=== PATIENT | female | born 1975 | race Caucasian/White ===

== ENCOUNTER 2016-07-07 12:06 | Emergency (ER) | payer OTHER ==
[2016-07-07 12:11] VITALS: BP 124/72; PULSE 74; TEMP 98.3; BMI 44.4
--- NOTE | 2016-07-07 13:09 | PDOC ---
History of Present Illness - General Chief Complaint: Head/Neck problem Stated Complaint: HEAD INJURY, NAUSEA Time Seen by Provider: 07/07/16 12:37 History Source: Patient Exam Limitations: No Limitations - History of Present Illness Initial Comments: 07/07/16 13:07 40-year-old female presents to the ED with complaints of left temporal pain since yesterday patient states was outside when the recycle bin fell and hit the side of her head. Patient states had no LOC and since then has developed a headache with nausea but denies any visual changes, dizziness, or vomiting. Patient on no blood thinners and denies any recent injury to the affected area. Timing/Duration: reports: 24 hours Severity: Yes: mild, moderate Associated Symptoms: reports: nausea/vomiting (nausea only) Past History - Past Medical History Allergies/Adverse Reactions: Allergies Allergy/AdvReac Type Severity Reaction Status Date / Time Sulfa (Sulfonamide Allergy Rash Verified 07/07/16 12:11 Antibiotics) Home Medications: Ambulatory Orders Pantoprazole Sodium 40 mg PO ASDIR 07/07/16 GI Disorders: Yes (BARRETTS ESOPHOGUS) - Surgical History Appendectomy: Yes - Psycho/Social/Smoking Cessation Hx Suicidal Ideation: No Smoking History: Never smoked Hx Alcohol Use: Yes (SOCIAL) Drug/Substance Use Hx: No Substance Use Type: None Patient Lives Alone: No Lives with/in: spouse/SO Review of Systems - Review of Systems Able to Perform ROS?: Yes Constitutional: No: Symptoms Reported HEENTM: No: Symptoms Reported Respiratory: Yes: Symptoms reported Cardiac (ROS): No: Symptoms Reported ABD/GI: Yes: Nausea. No: Vomiting : No: Symptoms Reported Musculoskeletal: No: Symptoms Reported, Neck Pain Integumentary: Yes: Bruising (left temporal), Erythema, Lumps Endocrine: No: Symptoms Reported Hematologic/Lymphatic: No: Symptoms Reported *Physical Exam - Vital Signs Last Vital Signs Temp Pulse Resp BP Pulse Ox 98.3 F 74 20 124/72 100 07/07/16 12:08 07/07/16 12:08 07/07/16 12:08 07/07/16 12:08 07/07/16 12:08 - Physical Exam General Appearance: Yes: Nourished, Appropriately Dressed. No: Apparent Distress HEENT: positive: EOMI, LILLIE. negative: Pale Conjunctivae Neck: positive: Supple. negative: Tender, Decreased range of motion Respiratory/Chest: positive: Lungs Clear, Normal Breath Sounds. negative: Respiratory Distress, Accessory Muscle Use Integumentary: positive: Ecchymosis (with mild edema over left forehead ) Neurologic: positive: Motor Strength 5/5 (ambulatory ) ED Treatment Course - RADIOLOGY Radiology Studies Ordered: Category Date Time Status HEAD CT WITHOUT CONTRAST [CT] Stat CT Scan 07/07/16 13:03 Ordered Medical Decision Making - Medical Decision Making 07/07/16 13:11 Pt status post an injury yesterday while placing items recyclable being struck by recycled bin. With noted hematoma along with mild edema to the lateral aspect of left eye. No neuro deficits but concerning for complaints of nausea and locality of injury. Patient ordered for head CT will check urine status . Offered Zofran but refused currently. 07/07/16 14:49 Laboratory Tests 07/07/16 13:00 Urine HCG, Qual Negative Head CT negative for acute pathology. Patient requesting something for discomfort. Patient ordered for Tylenol and will be discharged home with postconcussive syndrome instructions. *DC/Admit/Observation/Transfer Diagnosis at time of Disposition: Nausea Contusion of head Qualifiers: Encounter type: initial encounter Laterality: left - Discharge Dispostion Disposition: HOME Condition at time of disposition: Good - Referrals Referrals: Urbano Laws [Primary Care Provider] - - Patient Instructions Printed Discharge Instructions: DI for Postconcussion Syndrome Additional Instructions: All your head CT was negative for acute findings I do recommend you follow the instructions enclosed in your packet. Take Tylenol for discomfort Return to ED if your symptoms worsen despite above recommendations.
[2016-07-07] MEDS ORDERED: ACETAMINOPHEN 325 MG TABLET (FP) ONE (14:45)
[2016-07-07] MEDS ORDERED: ACETAMINOPHEN 500 MG TABLET (FP) PO ONE (14:50)
== END 2016-07-07 14:58 | disposition home or self-care (01) ==
LOC: JERFT 12:06
DX: S00.83XA Contusion of other part of head, initial encounter (principal); W20.8XXA Other cause of strike by thrown, projected or falling object, initial encounter; Y93.89 Activity, other specified; Y92.89 Other specified places as the place of occurrence of the external cause
CPT/HCPCS: 70450-TC; 84703; 99281-25

== ENCOUNTER 2016-07-09 18:18 | Emergency (ER) | payer OTHER ==
[2016-07-09 18:28] VITALS: BP 121/73; PULSE 77; TEMP 98.1; BMI 43.5
[2016-07-09] MEDS ORDERED: ONDANSETRON *ODT* 4 MG TABLET SL ONE (19:03)
[2016-07-09] MEDS ORDERED: ONDANSETRON *ODT* 4 MG TABLET ONE (19:06)
--- NOTE | 2016-07-09 19:14 | PDOC ---
History of Present Illness - General Chief Complaint: Injury Stated Complaint: REVISIT/HEAD INJURY Time Seen by Provider: 07/09/16 18:52 History Source: Patient Exam Limitations: No Limitations - History of Present Illness Initial Comments: 07/09/16 19:06 Chief complaint: Head injury Patient is a 40-year-old female who was seen here 4 days ago for head injury had a negative CT scan and in the last 13 hours has gotten more nauseous and worsening headache. Patient spoke to her doctor who told her to come back and get rescanned. Patient took Tylenol at 2 PM did not help. Patient cannot take Motrin due to GI issues. If occult he walking and patient is neurologically intact GENERAL/CONSTITUTIONAL: No fever, weakness. dizziness HEAD, EYES, EARS, NOSE AND THROAT: No change in vision. No ear pain or discharge. No sore throat. CARDIOVASCULAR: No chest pain RESPIRATORY: No shortness of breath or cough GASTROINTESTINAL: No pain, +nausea, no: vomiting, diarrhea or constipation GENITOURINARY: No dysuria MUSCULOSKELETAL: No neck or back pain SKIN: No rash NEUROLOGIC: +headache, no: vertigo, loss of consciousness, or loss of sensation. GENERAL: The patient is awake, alert, and fully oriented, in no acute distress. HEAD: 2 vision to the left forehead, healing, otherwise normal with no signs of trauma. EYES: Pupils equal, round and reactive to light, sclera anicteric, conjunctiva clear. EOMs intact Cranial nerves II through XII grossly intact ENT: pharynx: no erythema, no exudate, uvula midline NECK: supple CHEST: clear, nontender, rr ABD: soft, nontender EXTREMITIES: Normal range of motion, no edema. NEUROLOGICAL: Normal speech, normal gait. SKIN: Warm, Dry Past History - Past Medical History Allergies/Adverse Reactions: Allergies Allergy/AdvReac Type Severity Reaction Status Date / Time Sulfa (Sulfonamide Allergy Rash Verified 07/09/16 18:24 Antibiotics) Home Medications: Ambulatory Orders Pantoprazole Sodium 40 mg PO ASDIR 07/07/16 Ondansetron [Zofran Odt -] 4 mg SL TID PRN #12 od.tablet 07/09/16 Oxycodone HCl/Acetaminophen [Percocet 5-325 mg Tablet] 1 tab PO Q4H PRN #20 tablet MDD 6 07/09/16 GI Disorders: Yes (BARRETTS ESOPHOGUS) Kidney Stones: Yes - Surgical History Appendectomy: Yes - Psycho/Social/Smoking Cessation Hx Suicidal Ideation: No Smoking History: Never smoked Have you smoked in the past 12 months: No Information on smoking cessation initiated: No Hx Alcohol Use: No Drug/Substance Use Hx: No Substance Use Type: None *Physical Exam - Vital Signs Last Vital Signs Temp Pulse Resp BP Pulse Ox 98.1 F 77 18 121/73 100 07/09/16 18:25 07/09/16 18:25 07/09/16 18:25 07/09/16 18:25 07/09/16 18:25 ED Treatment Course - RADIOLOGY Radiology Studies Ordered: Category Date Time Status HEAD CT WITHOUT CONTRAST [CT] Stat CT Scan 07/09/16 19:02 Ordered Medical Decision Making - Medical Decision Making 07/09/16 20:[address] was negative, patient feels better after Zofran, no nausea, will give patient Toradol and will give a prescription for Zofran and Percocet and strict resting instructions. Patient was given extensive instructions and explanation regarding concussive instructions, no work for the next 2 days to rest at home hydrate. She is traveling next Saturday and she should see a neurologist this week as discussed if symptoms have not fully dissipated. She has a primary care doctor in a group and she will discuss with them *DC/Admit/Observation/Transfer Diagnosis at time of Disposition: Concussion Qualifiers: Encounter type: subsequent encounter Loss of consciousness presence/duration: without LOC Qualified Code(s): S06.0X0D - Concussion without loss of consciousness, subsequent encounter - Discharge Dispostion Disposition: HOME Condition at time of disposition: Good Admit: No - Prescriptions Prescriptions: Oxycodone HCl/Acetaminophen [Percocet 5-325 mg Tablet] 1 tab PO Q4H PRN #20 tablet MDD 6 PRN Reason: Headache Ondansetron [Zofran Odt -] 4 mg SL TID PRN #12 od.tablet PRN Reason: Nausea - Referrals Referrals: Urbano Laws [Primary Care Provider] - - Patient Instructions Printed Discharge Instructions: Postconcussion Syndrome Additional Instructions: Return to the nearest ER if worsening headache, nausea, vomiting, unsteady or worsening symptoms. You can take Tylenol 650 every 4 hours for headache. do not take over 4000 mg of tylenol in a 24 hour period. if you take a percocet, you need to count that as 325 mg tylenol Limit reading, computer worker, videogames, texting which can make symptoms worse. Followup with your doctor as instructed
[2016-07-09] MEDS ORDERED: ACETAMINOPHEN 325 MG TABLET (FP) PO ONE (19:47)
[2016-07-09] MEDS ORDERED: ACETAMINOPHEN 325 MG TABLET (FP) ONE (19:52)
[2016-07-09] MEDS ORDERED: KETOROLAC TROMETHAMINE 60 MG/2 ML VIAL IM ONE (19:56)
[2016-07-09] MEDS ORDERED: KETOROLAC TROMETHAMINE 60 MG/2 ML VIAL ONE (19:57)
== END 2016-07-09 20:05 | disposition home or self-care (01) ==
LOC: JERFT 18:18
DX: S06.0X0D Concussion without loss of consciousness, subsequent encounter (principal); W20.8XXD Other cause of strike by thrown, projected or falling object, subsequent encounter
CPT/HCPCS: 70450-TC; 99281-25